=== PATIENT | male | born 1945 | race Caucasian/White ===

== ENCOUNTER 2022-06-26 16:54 | Emergency (ER) | payer OTHER ==
[2022-06-26 17:08] VITALS: BP 117/82; PULSE 106; RESP 18; TEMP 97.9; BMI 25.1
== END 2022-06-26 19:03 | disposition home or self-care (01) ==
LOC: JER 16:54
DX: S00.83XA Contusion of other part of head, initial encounter (principal); Y99.9 Unspecified external cause status
CPT/HCPCS: 99283-25

== ENCOUNTER 2024-04-17 10:25 | Emergency (ER) | payer OTHER ==
[2024-04-17 10:34] VITALS: BP 136/101; PULSE 88; RESP 16; TEMP 98.8; BMI 25.1
== END 2024-04-17 16:02 | disposition home or self-care (01) ==
LOC: JER 10:25
DX: M79.661 Pain in right lower leg (principal)
CPT/HCPCS: 93005; 93010; 93971-TC; 99284-25

== ENCOUNTER 2024-06-23 11:02 | Emergency (ER) | payer OTHER ==
[2024-06-23 11:10] VITALS: RESP 18
[2024-06-23 11:17] VITALS: BMI 25.1
[2024-06-23 13:41] VITALS: BP 138/95; PULSE 79; TEMP 97.7
== END 2024-06-23 14:28 | disposition home or self-care (01) ==
LOC: JERFT 11:02
DX: S60.222A Contusion of left hand, initial encounter (principal); X58.XXXA Exposure to other specified factors, initial encounter
CPT/HCPCS: 73130-TC-LT-FY; 99283-25

== ENCOUNTER 2024-10-18 03:35 | Observation (INO) | payer BC, OTHER ==
[2024-10-18 03:41] VITALS: BP 134/96; PULSE 107; RESP 18; TEMP 97; BMI 25.1
[2024-10-18] MEDS: SODIUM CHLORIDE FOR INHALATION 3 ML VIAL.NEB IH ONE (04:59)
[2024-10-18 06:00] LABS: BASO % 0.3 % (0-2.0); EOS % 3.5 % (0-4.5); HEMATOCRIT 44.9 % (35.4-49); HEMOGLOBIN 14.5 GM/dL (11.7-16.9); LYMPH % 16.8 % (8-40); MCH 28.1 pg (25.7-33.7); MCHC 32.3 g/dl (32.0-35.9); MEAN CELL VOLUME 87.1 fl (80-96); MEAN PLT VOLUME 10.1 fl (7.5-11.1); MONO % 10.9 % (3.8-10.2); NEUT % 68.5 % (42.8-82.8); PLATELET COUNT 131 10^3/uL (134-434); RBC 5.16 M/mm3 (4.00-5.60); WHITE BLOOD COUNT 7.9 K/mm3 (4.0-10.0)
[2024-10-18 06:07] LABS: INR 1.16 (0.83-1.09); PROTHROMBIN TIME (PATIENT) 13.3 SEC (9.7-13.0)
[2024-10-18 06:10] LABS: ACTIVATED PTT 28.7 SECONDS (25.2-36.5)
[2024-10-18 06:25] LABS: POTASSIUM 3.7 mmol/L (3.5-5.1)
[2024-10-18 06:27] LABS: ALBUMIN 3.8 g/dl (3.4-5.0); BLOOD UREA NITROGEN 24.1 mg/dL (7-18); CALCIUM 8.6 mg/dL (8.5-10.1)
[2024-10-18 06:33] LABS: BILIRUBIN,TOTAL 0.7 mg/dL (0.2-1); TOT PROT 6.2 g/dl (6.4-8.2)
[2024-10-18] MEDS: ALBUTEROL SO4 2.5/IPRATROPIUM 0.5 INH SOL 3 ML VIAL.NEB. NEB ONE (07:00)
[2024-10-18] MEDS ORDERED: ALBUTEROL SO4 2.5/IPRATROPIUM 0.5 INH SOL 3 ML VIAL.NEB. NEB ONE (07:27)
[2024-10-18] MEDS: ALBUTEROL SO4 2.5/IPRATROPIUM 0.5 INH SOL 3 ML VIAL.NEB. NEB SCH (07:30)
[2024-10-18 09:38] LABS: ERYTHROCYTE SEDIMENTATION RATE 5 mm/hr (0-20)
[2024-10-18] MEDS ORDERED: ENOXAPARIN NA (PORCINE) 40 MG/0.4 ML DISP.SYRIN SQ ONE (10:05)
[2024-10-18] MEDS ORDERED: SERTRALINE HCL 50 MG TABLET (FP) ONE (10:05)
[2024-10-18] MEDS: ENOXAPARIN NA (PORCINE) 40 MG/0.4 ML DISP.SYRIN SQ SCH (10:19)
[2024-10-18] MEDS: SERTRALINE HCL 50 MG TABLET (FP) PO SCH (10:20)
[2024-10-18] MEDS: LACTATED RINGERS SOLUTION 1,000 ML/1,000 ML INFUS.BAG IV SCH (12:15)
[2024-10-18] MEDS: TACROLIMUS ANHYDROUS 1 MG CAPSULE PO SCH (14:08)
[2024-10-18] MEDS ORDERED: MONTELUKAST NA 10 MG TABLET PO SCH (22:00)
[2024-10-18] MEDS ORDERED: MYCOPHENOLATE MOFETIL 250 MG CAPSULE PO SCH (22:00)
[2024-10-18] MEDS ORDERED: ATORVASTATIN CA 40 MG TABLET (FP) PO SCH (22:00)
== END 2024-10-18 18:16 | disposition home or self-care (01) ==
LOC: JER 03:35 → JERBED 06:56
PROVIDERS: ADMIT Internal Medicine; ATTEND Internal Medicine
PROC: 3E0F7GC Introduction of Other Therapeutic Substance into Respiratory Tract, Via Natural or Artificial Opening (ICD-10-PCS; principal; 2024-10-18)
PROC: 3E0337Z Introduction of Electrolytic and Water Balance Substance into Peripheral Vein, Percutaneous Approach (ICD-10-PCS; 2024-10-18)
DX: B97.4 Respiratory syncytial virus as the cause of diseases classified elsewhere (principal); R09.02 Hypoxemia; Z94.1 Heart transplant status; R00.0 Tachycardia, unspecified; E78.5 Hyperlipidemia, unspecified
CPT/HCPCS: 0241U-QW; 36415; 71046-TC-FY; 80053; 84484; 85025; 85610; 85651; 85730; 86140; 93005; 93010; 94640; 96360; 99285-25; G0378